=== PATIENT | female | born 1950 | race Caucasian/White ===

== ENCOUNTER → 2019-11-24 | Outpatient (CLI) | payer MEDICARE, OTHER ==
[~2019-11-24] MED LIST: CYCL-97; EST1.25T; LVT.05T; NAPR-248; OXYC-190
--- NOTE | 2019-11-24 11:11 | Diagnostic Imaging Report ---
Indication: Cough PA and lateral chest Heart size and pulmonary vascularity are normal. Lungs are clear. There are no effusions or pneumothoraces. IMPRESSION: Negative chest Dictated by: Dictated on workstation # [id number]
== END ==
LOC: RAD 10:16
PROVIDERS: ATTEND Nurse Practitioner Family
DX: J44.9 Chronic obstructive pulmonary disease, unspecified (principal)
CPT/HCPCS: 71046

== ENCOUNTER → 2020-02-16 | Outpatient (CLI) | payer MEDICARE, OTHER | LOC: LABNPT 09:05 | PROVIDERS: ATTEND Nurse Practitioner Family | DX: J44.9 Chronic obstructive pulmonary disease, unspecified (principal); Z20.828 Contact with and (suspected) exposure to other viral communicable diseases | CPT/HCPCS: 87635 ==

== ENCOUNTER 2020-02-19 20:03 | Outpatient (CLI) | payer MEDICARE, OTHER ==
--- NOTE | 2019-11-28 13:42 | NUR ---
PT SCHEDULED FOR PULMONARY REHAB EVALUATION; LOOKED UP FILE TO SEE IF CURRENT PFT IN RECORDS (FOR EVAL), AND TO GET MAILING ADDRESS TO SEND PAPERWORK.
== END 2020-02-20 04:33 | disposition home or self-care (01) ==
LOC: SLEEP 20:03
PROVIDERS: ATTEND Nurse Practitioner Family
DX: G47.61 Periodic limb movement disorder (principal); G47.36 Sleep related hypoventilation in conditions classified elsewhere; G47.10 Hypersomnia, unspecified; R06.83 Snoring
CPT/HCPCS: 95810

== ENCOUNTER → 2020-08-20 | Outpatient (CLI) | payer MEDICARE, OTHER ==
[~2020-08-20] MED LIST changes: +HOLD METFORMIN - RECEIVED CONTRAST 20 ML VIAL IV SCH; +IOHEXOL 350 MG/ML 100 ML (OMNIPAQUE 350) VIAL IV ONE; +NS 100 ML (IVPB) BAG IV ONE
[2020-08-20 07:49] LABS: BUN/CREATININE RATIO 27; GFR ESTIMATED > 60
--- NOTE | 2020-08-20 10:02 | Diagnostic Imaging Report ---
PROCEDURE: CT chest with contrast only. TECHNIQUE: Multiple contiguous axial images were obtained through the chest after administration of intravenous contrast. Auto Exposure Controls were utilized during the CT exam to meet ALARA standards for radiation dose reduction. INDICATION: History of tobacco use, COPD. Abnormal pulmonary function tests. CORRELATION: None FINDINGS: A few small mediastinal and hilar lymph nodes are present. No pathologically enlarged thoracic lymphadenopathy. Heart size normal with scattered coronary artery calcification. Thoracic aorta is mild calcific indication the arch. Otherwise unremarkable. Advanced emphysematous changes about the lung parenchyma. No consolidating infiltrate. There is asymmetric biapical pleural thickening. There are several scattered areas of faint groundglass opacity within the lung ga. No definitive concerning solid mass lesion. No significant pleural effusion. Small hiatal hernia with some wall thickening about the low esophagus. Low attenuation of the liver with the suggestion of some fatty infiltration. Partially visualized gallbladder appears distended. There is abnormal nodularity indeterminate about the left adrenal gland. One area measuring 17 mm, additional body measuring 21 mm. There is also prominent atherosclerotic plaquing with both calcified and soft tissue plaque along the visualized proximal abdominal aorta. The visualized osseous structures demonstrate no acute findings. Cervical spinal fusion hardware partially visualized. IMPRESSION: 1. Advanced emphysematous changes about the lung parenchyma. Scattered groundglass opacities are present. Findings may be chronic or perhaps with mild inflammatory change. However, given the overall findings, would recommend repeat CT imaging of the chest in approximately 6-12 months for follow-up assessment. 2. Multiple findings in the abdomen including of left adrenal gland masses as well as partial visualization of what appears to be significant atherosclerotic changes about the abdominal aorta. Consideration for CT imaging of the abdomen and pelvis with and without contrast recommended. Dictated by: Dictated on workstation # [id number]
== END ==
LOC: RAD 08:15
PROVIDERS: ATTEND Nurse Practitioner Family
DX: J43.9 Emphysema, unspecified (principal); E27.9 Disorder of adrenal gland, unspecified; G47.36 Sleep related hypoventilation in conditions classified elsewhere; R94.2 Abnormal results of pulmonary function studies; F17.290 Nicotine dependence, other tobacco product, uncomplicated
CPT/HCPCS: 36415; 71260; 82565; 84520

== ENCOUNTER → 2021-02-03 | Outpatient (CLI) | payer MEDICARE, OTHER ==
[~2021-02-03] MED LIST changes: -IOHEXOL 350 MG/ML 100 ML (OMNIPAQUE 350) VIAL IV ONE; -NS 100 ML (IVPB) BAG IV ONE
[2021-02-03 08:31] LABS: CREATININE SERUM 0.69 MG/DL (0.60-1.30); GFR ESTIMATED > 60
[2021-02-03 08:32] LABS: BUN/CREATININE RATIO 17
[2021-02-03] MEDS: NS 100 ML (IVPB) BAG IV ONE (08:56)
[2021-02-03] MEDS: IOHEXOL 350 MG/ML 100 ML (OMNIPAQUE 350) VIAL IV ONE (08:56)
[2021-02-03] MEDS: CATHETER FLUSH 10 ML SYR IV PRN (08:56)
--- NOTE | 2021-02-03 09:05 | Diagnostic Imaging Report ---
EXAMINATION: CT chest with intravenous contrast. TECHNIQUE: Multiple contiguous axial images were obtained through the chest after the uneventful administration of intravenous contrast. All CT scans use one or more of the following dose optimizing techniques: automated exposure control, MA and/or KvP adjustment based on patient size and exam type or iterative reconstruction. HISTORY: Abnormal chest findings, followup. COMPARISON: CT chest 08/20/2020 FINDINGS: Thyroid: The thyroid is normal. Mediastinum: Heart size is normal without significant pericardial effusion. Calcifications of the aorta and coronary vessels. Thoracic aorta is normal in caliber. No suspicious lymphadenopathy. Lungs and airways: There are background emphysematous changes of the lungs. Biapical scarring. No consolidation, pleural effusion, or pneumothorax. Linear atelectasis or scarring within the anterior lungs. Stable left lower lobe pulmonary nodules measuring up to 0.4 cm. Appears to be layering mucus debris within the right mainstem bronchus. There is mild bronchial wall thickening. Upper abdomen: Stable 1.7 cm left adrenal nodule. There is a small hiatal hernia. Musculoskeletal: Degenerative changes of the spine without suspicious osseous lesion or compression fracture. IMPRESSION: 1. Stable mild background emphysematous changes of lungs. No suspicious pulmonary lesion. 2. Stable left lower lobe pulmonary nodules measuring up to 0.4 cm. Consider additional 6-12 month followup to document stability. 3. Stable left adrenal nodule. Dictated by: Dictated on workstation # [id number]
== END ==
LOC: RAD 09:15
PROVIDERS: ATTEND Internal Medicine Critical Care Medicine
DX: J43.9 Emphysema, unspecified (principal); E27.8 Other specified disorders of adrenal gland; R91.8 Other nonspecific abnormal finding of lung field
CPT/HCPCS: 36415; 71260; 82565; 84520

== ENCOUNTER → 2021-03-22 | Outpatient (CLI) | payer MEDICARE, OTHER ==
[~2021-03-22] MED LIST changes: -HOLD METFORMIN - RECEIVED CONTRAST 20 ML VIAL IV SCH; +RT-ALBUTEROL SULF 2.5 MG/3 ML PRE-MIX VIAL INH ONE
== END ==
LOC: RT 08:00
PROVIDERS: ATTEND Nurse Practitioner Family
DX: J44.9 Chronic obstructive pulmonary disease, unspecified (principal)
CPT/HCPCS: 94060; 94640; 94726; 94729

== ENCOUNTER 2022-10-20 04:35 | Observation (INO) | payer MEDICARE, OTHER ==
[~2022-10-20] VITALS: Ht 165 cm; Wt 96.7 kg
[~2022-10-20 04:35] MED LIST changes: -RT-ALBUTEROL SULF 2.5 MG/3 ML PRE-MIX VIAL INH ONE
[2022-10-20] MEDS ORDERED: methylPREDNISolone 125 MG (Solu-MEDROL) VIAL IV STA (04:52)
[2022-10-20] MEDS ORDERED: NITROGLYCERIN 2% OINT 1 GM UNIT DOSE PACKET TOP STA (04:52)
--- NOTE | 2022-10-20 04:52 | ED Cardiac General ---
History of Present Illness General Chief Complaint: Cardiac/General Problems Stated Complaint: BILATERAL ARM NUMBNESS Nursing Triage Note: PT PRESENTS VIA EMS WITH C/O FEELING "OFF" EMS REPORTS PT GOT UP TO USE THE BATHROOM AND HAD DIFFICULTY BREATHING WHEN SHE WENT BACK TO BED. SHE REPORTS BILATERAL ARM NUMBNESS WITH SHORTNESS OF BREATH. SHE STATES SHE GOT UP AND SAT IN A RECLINER AND DECIDED TO TAKE A NITRO WHICH MADE HER FEEL BETTER, BUT LIGHT HEADED. PT TOOK B/P AND REPORTS IT TO BE APPROX 85/50. EMS WAS CALLED, THEY REPORT LOW SPO2 AND DELIVERED A BREATHING TX DURING TRANSPORT. Source: patient (PT IS A POOR HISTORIAN ABOUT PM), EMS (ISAAC LAZCANO DO) History of Present Illness Date Seen by Provider: Oct 20, 2022 Time Seen by Provider: 04:35 Initial Comments PT ARRIVES VIA EMS FROM HOME PT STATES SHE WAS FINE WHEN SHE WENT TO BED TONIGHT SHE WOKE UP AT 0200 TO GO TO THE BATHROOM, AND DIDN'T FEEL WELL, SHE STATES SHE HAD: -SHORTNESS OF BREATH --ESPECIALLY WITH EXERTION, AND WITH LAYING DOWN -PRESSURE IN HER CHEST, IN HER UPPER BACK AND IN HER NECK -TINGLING IN BOTH OF HER ARMS -FELT LIKE SHE WAS GOING TO PASS OUT -NAUSEA, NO VOMITING -SWEATS NO SWELLING IN LEGS/FEET OR PAIN IN CALVES NO ABDOMINAL PAIN SHE TOOK A NTG AT 0330, THEN FELT LIKE SHE WAS GOING TO PASS OUT, BUT IT MADE HER OTHER SYMPTOMS BETTER TOOK HER BP AT HOME AND IT WAS 85/50 ON ARRIVAL, PT STATES SHE IS NOT HAVING ANY PAIN ANYWHERE, AND IS NOT HAVING ANY TINGLING ANYWHERE, AND HER SHORTNESS OF BREATH IS BETTER AFTER THE NEB TREATMENT BY EMS. HAS BEEN SICK FOR THE LAST WEEK WITH COUGH AND CONGESTION--COLD SYMPTOMS DENIES FEVER SHE HAS NOT TAKEN ANYTHING FOR HER SYMPTOMS, AND SHE HAS NOT SOUGHT CARE FOR THOSE SYMPTOMS PT HAS COPD, CONTINUES TO SMOKE 1 1/2 PPD SHE DOES NOT HAVE HOME O2 SHE USED HER INHALERS YESTERDAY PRESCRIBED, BUT NOT SINCE SHE WOKE UP AT 0200. WHEN EMS ARRIVED, PT WAS SITTING AT HER KITCHEN TABLE, SMOKING A CIGARETTE O2 SAT WAS 80% ON ROOM AIR FOR EMS. EMS GAVE DUONEB TREATMENT ENROUTE AND O2 SATS UP TO 98% DURING TREATMEN FIRST BP FOR EMS WAS 104 SYSTOLIC, SECOND BP WAS 179 SYSTOLIC HR HAS BEEN 70'S-80'S FOR EMS PT STATES SHE HAS HISTORY OF "BLOCKAGES" BUT DENIES ANY HISTORY OF HEART SURGERY OR STENTS. SHE ALSO STATES SHE HAS AN ANEURYSM IN HER ABDOMEN, BUT HAS NOT HAD SURGERY OR STENTS TO THAT EITHER. SHE DENIES ANY HISTORY OF HTN OR DIABETES, SHE DOES HAVE HYPERLIPIDEMIA. SHE HAS HAD COVID VACCINE X 2, NO FLU VACCINE PCP: [facility] AT [place] (ISAAC LAZCANO DO) Allergies and Home Medications Allergies Coded Allergies: NKANo Known Allergies (Unverified Allergy, Mild, 07/19/09) Patient Home Medication List Home Medication List Reviewed: Yes (DUSTY MITCHELL MD) Cyclobenzaprine Hcl (Flexeril) 10 Mg Tablet, (Reported) Entered as Reported by: ALIRIO SMITHTREET on 07/19/09557 Estrogens,Conjugated (Premarin) 1.25 Mg Tablet, (Reported) Entered as Reported by: ALIRIO Rebolledo LUCAS on 07/19/0959 Levothyroxine Sodium (Levothroid) 50 Mcg Tab, (Reported) Entered as Reported by: ALIRIO Rebolledo LUCAS on 07/19/09557 Naproxen (Ec-Naprosyn) 500 Mg Tablet., (Reported) Entered as Reported by: ALIRIO Rebolledo LUCAS on 07/19/09557 Oxycodone Hcl/Acetaminophen (Endocet 7.5-325 Mg Tablet) 1 Each Tablet, (Reported) Entered as Reported by: ALIRIO SMITHTREET on 07/19/0959 Review of Systems Review of Systems Constitutional: see HPI, diaphoresis, dizziness, fever EENTM: See HPI, Nose Congestion Respiratory: See HPI, Cough, Orthopnea, Shortness of Air, SOA With Exertion, SOA at Rest, Wheezing Cardiovascular: See HPI, Chest Pain; Denies Edema, Denies Irregular Heart Rate; Lightheadedness; Denies Palpitations, Denies Syncope Gastrointestinal: See HPI; Denies Abdominal Pain; Nausea; Denies Vomiting Genitourinary: No Symptoms Reported Musculoskeletal: see HPI, back pain Skin: no symptoms reported Psychiatric/Neurological: See HPI, Paresthesia Endocrine: No Symptoms Reported Hematologic/Lymphatic: No Symptoms Reported (ISAAC LAZCANO DO) Past Nwflxim-Dthnse-Xgzsqw Hx Patient Social History Tobacco Use?: Yes Tobacco type used: Cigarettes Smoking Status: Current Everyday Smoker Use of E-Cig and/or Vaping dev: No Substance use?: No Alcohol Use?: No (ISAAC LAZCANO DO) Past Medical History Surgeries: No Respiratory: Yes COPD Cardiac: Yes Aneurysm, Coronary Artery Disease, High Cholesterol 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 oz. kg; 34.00 BMI Method: General Appearance: No Apparent Distress, WD/WN, Other (REEKS OF CIGARETTES; PT IS DYSPNEIC ON TRANSFER FROM EMS COT TO ER COT, ON ARRIVAL, THIS DOES IMPROVE AFTER SHE HAS RESTED ) HEENT: PERRL/EOMI Neck: Full Range of Motion, Normal Inspection, Non Tender, Supple; No Carotid Bruit Respiratory: Chest Non Tender, No Accessory Muscle Use, No Respiratory Distress, Wheezing (DIFFUSE INSPIRATORY/EXPIRATORY WHEEZING BILATERALLY) Cardiovascular: Regular Rate, Rhythm, No Edema, No JVD, No Murmur, Normal Peripheral Pulses Gastrointestinal: Normal Bowel Sounds, No Organomegaly, No Pulsatile Mass, Non Tender, Soft Extremity: Normal Capillary Refill, Normal Inspection, Normal Range of Motion, Non Tender, No Calf Tenderness, No Pedal Edema Neurologic/Psychiatric: Alert, Oriented x3, No Motor/Sensory Deficits, Normal 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, 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 as Tested Skin: Normal Color, Warm/Dry (ISAAC LAZCANO DO) Focused Exam Lactate Level 10/20/22 05:08: Lactic Acid Level 1.13 (DUSTY MITCHELL MD) Lactic Acid Level Laboratory Tests Test 10/20/22 05:08 Lactic Acid Level 1.13 MMOL/L (0.50-2.00) (DUSTY MITCHELL MD) Progress/Results/Core Measures Results/Orders Lab Results Laboratory Tests Test 10/20/22 04:08 10/20/22 04:55 10/20/22 05:08 10/20/22 05:35 Range/Units White Blood Count 6.5 4.3-11.0 10^3/uL Red Blood Count 5.23 H 3.80-5.11 10^6/uL Hemoglobin 16.2 H 11.5-16.0 g/dL Hematocrit 48 35-52 % Mean Corpuscular Volume 92 80-99 fL Mean Corpuscular Hemoglobin 31 25-34 pg Mean Corpuscular Hemoglobin Concent 34 32-36 g/dL Red Cell Distribution Width 14.0 10.0-14.5 % Platelet Count 237 130-400 10^3/uL Mean Platelet Volume 9.0 9.0-12.2 fL Immature Granulocyte % (Auto) 0 % Neutrophils (%) (Auto) 42 42-75 % Lymphocytes (%) (Auto) 47 H 12-44 % Monocytes (%) (Auto) 10 0-12 % Eosinophils (%) (Auto) 1 0-10 % Basophils (%) (Auto) 0 0-10 % Neutrophils # (Auto) 2.7 1.8-7.8 10^3/uL Lymphocytes # (Auto) 3.0 1.0-4.0 10^3/uL Monocytes # (Auto) 0.7 0.0-1.0 10^3/uL Eosinophils # (Auto) 0.1 0.0-0.3 10^3/uL Basophils # (Auto) 0.0 0.0-0.1 10^3/uL Immature Granulocyte # (Auto) 0.0 0.0-0.1 10^3/uL Erythrocyte Sedimentation Rate 5 0-30 MM/HR Prothrombin Time 12.1 L 12.2-14.7 SEC INR Comment 0.9 0.8-1.4 Activated Partial Thromboplast Time 27 24-35 SEC D-Dimer 0.59 H 0.00-0.49 UG/ML Sodium Level 135 135-145 MMOL/L Potassium Level 3.6 3.6-5.0 MMOL/L Chloride Level 94 L 98-107 MMOL/L Carbon Dioxide Level 30 21-32 MMOL/L Anion Gap 11 5-14 MMOL/L Blood Urea Nitrogen 14 7-18 MG/DL Creatinine 0.73 0.60-1.30 MG/DL Estimat Glomerular Filtration Rate 87 BUN/Creatinine Ratio 19 Glucose Level 131 H 70-105 MG/DL Calcium Level 9.6 8.5-10.1 MG/DL Corrected Calcium 9.6 8.5-10.1 MG/DL Magnesium Level 2.1 1.6-2.4 MG/DL Total Bilirubin 0.4 0.1-1.0 MG/DL Aspartate Amino Transf (AST/SGOT) 25 5-34 U/L Alanine Aminotransferase (ALT/SGPT) 34 0-55 U/L Alkaline Phosphatase 92 40-136 U/L Total Creatine Kinase 56 29-168 U/L Creatine Kinase MB 1.6 <6.6 NG/ML Myoglobin 34.4 10.0-92.0 NG/ML Troponin I < 0.028 <0.028 NG/ML C-Reactive Protein High Sensitivity 0.87 H 0.00-0.50 MG/DL B-Type Natriuretic Peptide 27.6 <100.0 PG/ML Total Protein 7.1 6.4-8.2 GM/DL Albumin 4.0 3.2-4.5 GM/DL Amylase Level 20 L 25-125 U/L Lipase 4 L 8-78 U/L TSH [place] Testing 4.31 0.35-4.94 UIU/ML Influenza Type A (RT-PCR) Not Detected Not Detecte Influenza Type B (RT-PCR) Not Detected Not Detecte SARS-CoV-2 RNA (RT-PCR) Not Detected Not Detecte Lactic Acid Level 1.13 0.50-2.00 MMOL/L Blood Gas Puncture Site LR Blood Gas Patient Temperature 35.6 Arterial Blood pH 7.34 *L 7.37-7.43 Arterial Blood Partial Pressure CO2 63 H 35-45 MMHG Arterial Blood Partial Pressure O2 69 L 79-93 MMHG Arterial Blood HCO3 34 H 23-27 MMOL/L Arterial Blood Total CO2 35.8 H 21.0-31.0 MMOL/L Arterial Blood Oxygen Saturation 97 94-100 % Arterial Blood Base Excess 7.8 H -2.5-2.5 MMOL/L Diaz Test YES-POS Blood Gas Ventilator Setting NO Blood Gas Inspired Oxygen 2 L Test 10/20/22 06:26 Range/Units Urine Color YELLOW Urine Clarity CLOUDY Urine pH 7.0 5-9 Urine Specific [place] 1.010 L 1.016-1.022 Urine Protein NEGATIVE NEGATIVE Urine Glucose (UA) NEGATIVE NEGATIVE Urine Ketones NEGATIVE NEGATIVE Urine Nitrite NEGATIVE NEGATIVE Urine Bilirubin NEGATIVE NEGATIVE Urine Urobilinogen 0.2 < = 1.0 MG/DL Urine Leukocyte Esterase NEGATIVE NEGATIVE Urine RBC (Auto) NEGATIVE NEGATIVE Urine RBC NONE /HPF Urine WBC NONE /HPF Urine Squamous Epithelial Cells 2-5 /HPF Urine Crystals PRESENT H /LPF Urine Amorphous Sediment MOD DEBBY URATES H /LPF Urine Bacteria NEGATIVE /HPF Urine Casts NONE /LPF Urine Mucus NEGATIVE /LPF Urine Culture Indicated NO (DUSTY MITCHELL MD) My Orders Orders - DUSTY MITCHELL MD Albuterol/Ipra Inhalation Soln (Duoneb I (10/20/22 07:45) Svn Small Volume Nebulizer (10/20/22 07:36) (DUSTY MITCHELL MD) Medications Given in ED Current Medications Medications Dose Ordered Sig/Viviana Route Start Time Stop Time Status Last Admin Dose Admin Albuterol/ Ipratropium 3 ml ONCE ONCE INH 10/20/22 05:00 10/20/22 05:01 DC 10/20/22 05:36 3 ML Albuterol/ Ipratropium 3 ml ONCE ONCE INH 10/20/22 07:45 10/20/22 07:46 DC 10/20/22 07:49 3 ML Aspirin 324 mg ONCE ONCE PO 10/20/22 05:00 10/20/22 05:01 DC 10/20/22 05:00 324 MG Dexamethasone Sodium Phosphate 20 mg ONCE ONCE IH 10/20/22 05:00 10/20/22 05:01 DC 10/20/22 05:37 20 MG Iohexol 100 ml ONCE ONCE IV 10/20/22 06:45 10/20/22 06:46 DC 10/20/22 06:47 79 ML Sodium Chloride 100 ml ONCE ONCE IV 10/20/22 06:45 10/20/22 06:46 DC 10/20/22 06:47 80 ML (DUSTY MITCHELL MD) Vital Signs/I&O 10/20/22 10/20/2210/20/23 04:36 04:52 05:47 Temp 35.8 Pulse 80 Resp 20 B/P (MAP) 177/77 (110) Pulse Ox 95 96 O2 Delivery Nasal Cannula Nasal Cannula Nasal Cannula O2 Flow Rate 2.00 4.00 2.00 (DUSTY MITCHELL MD) Blood Pressure Mean: 110 Progress Progress Note : Progress Note PPE WORN COVID AND FLU TESTING DONE GIVEN: -ASPIRIN -NITROPASTE HELD, BP IS DOWN TO 150'S/60'S SHORTLY AFTER ARRIVAL, AND PT IS NOT COMPLAINING OF ANY CHEST PAIN OR BACK OR NECK PAIN OR ARM TINGLING AT THIS TIME. -SOLU-MEDROL -NEB TREATMENT 0550--PT STATES SHE IS FEELING MUCH BETTER THAN SHE DID AT HOME. VITALS ARE STABLE. WILL OBTAIN CT SCAN OF CHEST AND ABDOMEN, BASED ON PT'S SYMPTOMS AND HISTORY. REVIEWED PRIOR RECORDS, PT HAS NOT HAD ANY VISITS HERE, EXCEPT FOR A SINGLE ER VISIT IN 2008 FOR AN UNRELATED COMPLAINT 0600--CARE TURNED OVER TO DR. MITCHELL, CT IS PENDING AT THIS TIME. (ISAAC LAZCANO DO) Progress Note : Time: 08:03 Progress Note I assumed care of this patient from Dr. LAZCANO at shift change. She is stable at this time. She denies any further chest or neck pressure. She is stable on nasal cannula at 2 L. On auscultation she is still very wheezy. Another DuoNeb treatment has been ordered. Patient comments to nursing staff that she has a "allergy" to albuterol and that on a prior episode it caused her to "close up." However, she did not have any adverse reaction to DuoNeb earlier this morning. We are trying another treatment. I discussed CODE STATUS with the patient and she would like to remain full code. She is agreeable to admission for observation. I am concerned about her persistent wheezing and severity of hypoxia. I want to be sure she is improving before being discharged home. Case was discussed with Dr. Malohtra, hospitalist, who agrees to admission. Patient's primary care provider is Sheree Dubois with the [facility] and her instrument technologist is Dr. Benitez in [place]. (DUSTY MITCHELL MD) Initial ECG Impression Date: Oct 20, 2022 Initial ECG Impression Time: 04:44 Initial ECG Rate: 78 Initial ECG Rhythm: Normal Sinus Initial ECG Comparisson: No Previous ECG Available Comment INTERPRETED BY ME (ISAAC LAZCANO DO) Diagnostic Imaging Comments CXR--PER RADIOLOGIST REPORT AT 0546 Heart size and pulmonary vascularity are normal. Lungs are clear. There are no effusions or pneumothoraces. IMPRESSION: No acute abnormalities in the chest Reviewed: Reviewed by Me (ISAAC LAZCANO DO) Diagonstic Imaging: CT Plain Films/CT/US/NM/MRI: chest, abdomen, pelvis Comments CT angiogram viewed by me and report reviewed. See report below: NAME: CARA HAMEED [employer] REC#: [id number] PT STATUS: REG ER : 1950 PHYSICIAN: ISAAC LAZCANO DO ADMIT DATE: 10/20/22/ER Draft Date of Exam:10/20/22 CT BENNETT CHEST/NOANG ABD-PELV W INDICATION: chest pain/abdominal pain CTA chest, abdomen and pelvis Thin axial sections through the chest, abdomen and pelvis are obtained following intravenous contrast bolus. Multiplanar MIP images were reconstructed and reviewed. All CT scans use one or more of the following dose optimizing techniques: automated exposure control, MA and/or KvP adjustment based on patient size and exam type or iterative reconstruction. CTA of the chest with a CT abdomen pelvis 10/20/22 Comparison made to a chest from 02/03/2021 FINDINGS: CHEST: There is diffuse atherosclerotic disease throughout the thoracic aorta. There is no aneurysmal dilatation. No dissection. There are no central pulmonary emboli. The peripheral vessels are poorly opacified limiting evaluation especially in the lower lobes where pulmonary embolus cannot be excluded. Scattered areas of hypodensity likely incomplete opacification but if there is concern for pulmonary embolus repeat imaging recommended. There is a slightly prominent lymph node within the right hilum. No mediastinal adenopathy. There are no pericardial or pleural effusions. There is motion artifact within the lungs limiting evaluation. Emphysematous changes noted with scarring in the apices. No suspicious masses appreciated. Visualized upper abdomen demonstrates marked diffuse hepatic steatosis. There is a mass like lesion in the left adrenal gland. Dedicated adrenal protocol CT on nonemergent basis recommended. Hyperplasia of the right adrenal gland is noted. There is no acute osseous abnormality. CT abdomen pelvis: There is marked dilatation of the gallbladder without surrounding inflammatory change. There is diffuse hepatic steatosis. Spleen unremarkable. Adrenal glands described above. Pancreas atrophied. Kidneys unremarkable for acute abnormality. There is diffuse atherosclerotic disease throughout the visualized abdominal aorta with an infrarenal aneurysm noted measuring 4.2 cm in AP dimension. No obvious dissection appreciated however this is not a CTA of the abdomen and pelvis. There is no ascites. No free air. No inflammatory changes seen about the loops of bowel. No acute osseous abnormality. IMPRESSION: 1. No evidence for a thoracic aortic aneurysm or dissection. 2. No central pulmonary emboli. Peripheral vessels not well evaluated as above and if there is continued concern for a pulmonary embolus repeat imaging recommended. 3. Emphysematous changes. 4. Diffuse dilatation of the gallbladder without surrounding inflammation. 5. Infrarenal abdominal aortic aneurysm. 6. Hepatic steatosis. 7. Left adrenal lesion see above for recommendations. Dictated on workstation # [id number] Dict: 10/20/22 0641 Trans: 10/20/22 0710 [facility] [id number] Interpreted by: CODY HUGO MD (DUSTY MITCHELL MD) Departure Communication (Admissions) Time/Spoke to Admitting Phy: 08:00 Dr Malhotra (DUSTY MITCHELL MD) Impression Primary Impression: COPD exacerbation Additional Impressions: Hypoxia Chest pain Qualified Codes: R07.9 - Chest pain, unspecified Lesion of adrenal gland Near syncope Hypercarbia Disposition: ADMITTED INPATIENT Condition: Improved Admissions Decision to Admit Reason: Admit from ER (General) Decision to Admit/Date: Oct 20, 2022 Time/Decision to Admit Time: 08:00 (DUSTY MITCHELL MD) Departure-Patient Inst. Referrals: [facility] (PCP/Family) Primary Care Physician ISAAC LAZCANO DO Oct 20, 2022 04:52 DUSTY MITCHELL MD Oct 20, 2022 07:21
[2022-10-20] MEDS ORDERED: RT-ALBUTEROL/IPRATROPIUM 3 ML (DUONEB) VIAL INH ONE ×2 (05:00→07:45)
[2022-10-20] MEDS ORDERED: ASPIRIN 81 MG CHEW (CHILDREN'S ASA) PO ONE (05:00)
[2022-10-20 05:02] LABS: BASOPHILS % (AUTO) 0 % (0-10); EOSINOPHILS # (AUTO) 0.1 10^3/uL (0.0-0.3); EOSINOPHILS % (AUTO) 1 % (0-10); HEMATOCRIT 48 % (35-52); HEMOGLOBIN 16.2 g/dL (11.5-16.0); LYMPHOCYTES % (AUTO) 47 % (12-44); MEAN CORPUSCULAR HEMOGLOBIN 31 pg (25-34); MEAN CORPUSCULAR HGB CONC 34 g/dL (32-36); MEAN CORPUSCULAR VOLUME 92 fL (80-99); MONOCYTES # (AUTO) 0.7 10^3/uL (0.0-1.0); MONOCYTES % (AUTO) 10 % (0-12); NEUTROPHILS # (AUTO) 2.7 10^3/uL (1.8-7.8); NEUTROPHILS % (AUTO) 42 % (42-75); PLATELET COUNT 237 10^3/uL (130-400); WHITE BLOOD COUNT 6.5 10^3/uL (4.3-11.0)
[2022-10-20 05:18] LABS: FIBRIN DEGRADATION PRODUCTS 0.59 UG/ML (0.00-0.49); INR 0.9 (0.8-1.4); PROTHROMBIN TIME PATIENT 12.1 SEC (12.2-14.7)
[2022-10-20 05:30] LABS: ALANINE AMINOTRANSFERASE 34 U/L (0-55); ALKALINE PHOSPHATASE 92 U/L (40-136); AMYLASE 20 U/L (25-125); BILIRUBIN,TOTAL 0.4 MG/DL (0.1-1.0); BUN/CREATININE RATIO 19; CALCIUM 9.6 MG/DL (8.5-10.1); CARBON DIOXIDE 30 MMOL/L (21-32); CHLORIDE 94 MMOL/L (98-107); CREATINE KINASE 56 U/L (29-168); CREATININE SERUM 0.73 MG/DL (0.60-1.30); GFR ESTIMATED 87; GLUCOSE 131 MG/DL (70-105); LIPASE 4 U/L (8-78); MAGNESIUM 2.1 MG/DL (1.6-2.4); POTASSIUM 3.6 MMOL/L (3.6-5.0); SODIUM 135 MMOL/L (135-145); TOTAL PROTEIN 7.1 GM/DL (6.4-8.2)
[2022-10-20 05:39] LABS: ERYTHROCYTE SEDIMENTATION RATE 5 MM/HR (0-30)
--- NOTE | 2022-10-20 05:41 | Diagnostic Imaging Report ---
Indication: Chest pain, shortness of breath Portable chest 5:03 AM Heart size and pulmonary vascularity are normal. Lungs are clear. There are no effusions or pneumothoraces. IMPRESSION: No acute abnormalities in the chest Dictated by: Dictated on workstation # [id number]
[2022-10-20 05:42] LABS: CREATINE KINASE MB 1.6 NG/ML (<6.6); TSH (THYROID ANALYZER) 4.31 UIU/ML (0.35-4.94)
[2022-10-20 05:53] LABS: ABG BASE EXCESS 7.8 MMOL/L (-2.5-2.5); ABG OXYGEN SATURATION 97 % (94-100); ABG PCO2 63 MMHG (35-45); ABG PO2 69 MMHG (79-93); ABG TCO2 35.8 MMOL/L (21.0-31.0)
[2022-10-20 05:54] LABS: ABG PH 7.34 (7.37-7.43); ALLENS TEST YES-POS; INSPIRED O2 2 L; PATIENT TEMP 35.6; VENTILATOR NO
[2022-10-20 06:39] LABS: BILIRUBIN,URINE NEGATIVE (NEGATIVE); CLARITY,URINE CLOUDY; COLOR,URINE YELLOW; GLUCOSE, URINE (UA) NEGATIVE (NEGATIVE); KETONES,URINE NEGATIVE (NEGATIVE); LEUKOCYTE ESTERASE ,URINE NEGATIVE (NEGATIVE); NITRITE,URINE NEGATIVE (NEGATIVE); PROTEIN,URINE NEGATIVE (NEGATIVE)
[2022-10-20] MEDS ORDERED: HOLD METFORMIN - RECEIVED CONTRAST 20 ML VIAL IV SCH (06:45)
[2022-10-20] MEDS ORDERED: NS 100 ML (IVPB) BAG IV ONE (06:45)
[2022-10-20] MEDS ORDERED: IOHEXOL 350 MG/ML 100 ML (OMNIPAQUE 350) VIAL IV ONE (06:45)
[2022-10-20 07:07] LABS: AMORPHOUS SEDIMENT,UR MOD AMOR URATES /LPF; BACTERIA,URINE NEGATIVE /HPF
--- NOTE | 2022-10-20 07:11 | Diagnostic Imaging Report ---
INDICATION: chest pain/abdominal pain CTA chest, abdomen and pelvis Thin axial sections through the chest, abdomen and pelvis are obtained following intravenous contrast bolus. Multiplanar MIP images were reconstructed and reviewed. All CT scans use one or more of the following dose optimizing techniques: automated exposure control, MA and/or KvP adjustment based on patient size and exam type or iterative reconstruction. CTA of the chest with a CT abdomen pelvis 10/20/22 Comparison made to a chest from 02/03/2021 FINDINGS: CHEST: There is diffuse atherosclerotic disease throughout the thoracic aorta. There is no aneurysmal dilatation. No dissection. There are no central pulmonary emboli. The peripheral vessels are poorly opacified limiting evaluation especially in the lower lobes where pulmonary embolus cannot be excluded. Scattered areas of hypodensity likely incomplete opacification but if there is concern for pulmonary embolus repeat imaging recommended. There is a slightly prominent lymph node within the right hilum. No mediastinal adenopathy. There are no pericardial or pleural effusions. There is motion artifact within the lungs limiting evaluation. Emphysematous changes noted with scarring in the apices. No suspicious masses appreciated. Visualized upper abdomen demonstrates marked diffuse hepatic steatosis. There is a mass like lesion in the left adrenal gland. Dedicated adrenal protocol CT on nonemergent basis recommended. Hyperplasia of the right adrenal gland is noted. There is no acute osseous abnormality. CT abdomen pelvis: There is marked dilatation of the gallbladder without surrounding inflammatory change. There is diffuse hepatic steatosis. Spleen unremarkable. Adrenal glands described above. Pancreas atrophied. Kidneys unremarkable for acute abnormality. There is diffuse atherosclerotic disease throughout the visualized abdominal aorta with an infrarenal aneurysm noted measuring 4.2 cm in AP dimension. No obvious dissection appreciated however this is not a CTA of the abdomen and pelvis. There is no ascites. No free air. No inflammatory changes seen about the loops of bowel. No acute osseous abnormality. IMPRESSION: 1. No evidence for a thoracic aortic aneurysm or dissection. 2. No central pulmonary emboli. Peripheral vessels not well evaluated as above and if there is continued concern for a pulmonary embolus repeat imaging recommended. 3. Emphysematous changes. 4. Diffuse dilatation of the gallbladder without surrounding inflammation. 5. Infrarenal abdominal aortic aneurysm. 6. Hepatic steatosis. 7. Left adrenal lesion see above for recommendations. Dictated by: Dictated on workstation # [id number]
[2022-10-20] MEDS ORDERED: polyethylene glycoL POWDER 17 GM (MIRALAX) PACK PO PRN (10:15)
[2022-10-20] MEDS ORDERED: CALCIUM CARBONATE 500 MG (TUMS) TAB.CHEW PO PRN (10:15)
[2022-10-20] MEDS ORDERED: NS IV 500 ML 500 ML IV PRN (10:15)
[2022-10-20] MEDS ORDERED: ACETAMINOPHEN 325 MG TABLET PO PRN (10:15)
[2022-10-20] MEDS ORDERED: MILK OF MAGNESIA 400 MG/5 ML 30 ML UDC PO PRN (10:15)
[2022-10-20] MEDS ORDERED: ONDANSETRON 4 MG/2 ML (SDV) Z0FRAN IV PRN (10:15)
[2022-10-20] MEDS ORDERED: ANTACID SUSP 30 ML UDC (MYLANTA) PO PRN (10:15)
[2022-10-20] MEDS ORDERED: LACTULOSE SYRUP 10GM/15ML (ENULOSE) 30ML UDC PO PRN (10:15)
[2022-10-20] MEDS ORDERED: BISACODYL 10 MG SUPP (DULCOLAX) PR PRN (10:15)
[2022-10-20] MEDS ORDERED: ONDANSETRON 4 MG (ZOFRAN) ORAL DISSOLVE TAB PO PRN (10:15)
[2022-10-20] MEDS ORDERED: MELATONIN 3 MG TABLET PO PRN (10:15)
[2022-10-20 10:23] VITALS: BP_SYST 146; BP_SYST 177; BP_DIAS 77; BP_DIAS 80
[2022-10-20] MEDS ORDERED: RT-ALBUTEROL SULF 2.5 MG/3 ML PRE-MIX VIAL INH PRN (10:30)
[2022-10-20] MEDS ORDERED: RT-IPRATROPIUM (ATROVENT) 0.5MG/2.5ML AMP IH ONE (10:44)
[2022-10-20] MEDS ORDERED: HYDR12.56 PO (11:10)
[2022-10-20] MEDS ORDERED: DILT120C47 PO (11:10)
[2022-10-20] MEDS ORDERED: ALIR150P6 INJ (11:10)
[2022-10-20] MEDS ORDERED: LEVO50TA6 PO (11:10)
[2022-10-20] MEDS ORDERED: TIOT4MIS2 INH (11:10)
[2022-10-20] MEDS ORDERED: IPR14IN INH (11:12)
[2022-10-20] MEDS: NICOTINE 21 MG (NICODERM) PATCH TD SCH (11:23)
[2022-10-20] MEDS: ENOXAPARIN 40 MG/0.4 ML (LOVENOX) SYR SC SCH (11:23)
[2022-10-20 11:47] VITALS: BP 164/75
[2022-10-20] MEDS: RT-IPRATROPIUM (ATROVENT) 0.5MG/2.5ML AMP IH SCH ×3 (14:55→22:14)
[2022-10-20] MEDS: RT-ALBUTEROL SULF 2.5 MG/3 ML PRE-MIX VIAL INH SCH ×2 (14:55→19:37)
[2022-10-20 15:49] VITALS: BP 157/80
[2022-10-20] MEDS: guaiFENesin/CODEINE (ROBITUSSIN AC) 10ML UDC PO PRN ×2 (16:01→21:46)
--- NOTE | 2022-10-20 18:53 | History & Physical-Hospitalist ---
History of Present Illness HPI/Chief Complaint Saima Small is a 72 year old female with PMH COPD on nocturnal oxygen, tobacco abuse, HTN, hypothyroidism, who presented with shortness of breath. She has also had a cough. She hasn't been producing much sputum. She has had chest tightness. She does not describe it as pain. She denies fevers and chills. She denies pal pitations. She felt lightheaded and dizzy. She took a nitroglycerin because she thought this would help. She was feeling a bit nauseous. She denies vomiting. She denies abdominal pain. Source: patient Exam Limitations: no limitations Date Seen 10/20/22 Time Seen by a Provider: 12:00 Attending Physician Faith Woodruff PCP Admitting Physician: Serina Koch MD Attending Physician: Serina Koch MD Referring Physician Date of Admission Oct 20, 2022 at 08:03 Home Medications & Allergies Home Medications Reviewed patient Home Medication Reconciliation performed by pharmacy medication reconciliations nursery technician and/or nursing. Patients Allergies have been reviewed. Allergies Allergies Coded Allergies [id number]-BnG Reductase Inhibitor (Verified Allergy, Unknown, 10/20/22) Past [id number]-[id number] Hx Patient Social History Tobacco Use?: Yes Tobacco type used: Cigarettes Smoking Status: Current Everyday Smoker Smokeless Tobacco Frequency: Current Everyday User Use of E-Cig and/or Vaping dev: No Substance use?: No Alcohol Use?: No Pt feels they are or have been: No Immunizations Up To Date Date of Influenza Vaccine: Aug 01, 2022 Tetanus Booster (TDap): Unknown Hepatitis A: Yes Hepatitis B: Yes Current Status Advance Directives: No Communicates: Verbally Primary Language: [place] Preferred Spoken Language: [place] Is interpretation needed?: No Sensory deficits: Vision impairment Implanted or Applied Medical D: Orthopedic hardware Past Medical History COPD Hypertension, Peripheral Vascular (Carotid stenosis) 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 oz. kg; 34.67 BMI Method: General Appearance: No Apparent Distress, Chronically ill, Obese HEENT: PERRL/EOMI, Pharynx Normal Neck: Normal Inspection, Supple Respiratory: No Respiratory Distress, Wheezing Cardiovascular: Regular Rate, Rhythm, No Edema, No Murmur Gastrointestinal: Normal Bowel Sounds, Non Tender, Soft Extremity: Normal Inspection, Non Tender, No Pedal Edema Neurologic/Psychiatric: Alert, Normal Mood/Affect Skin: Normal Color, Warm/Dry Results Results/Procedures Labs Laboratory Tests 10/20/22 04:08 Patient resulted labs reviewed. Imaging: Reviewed Imaging Report Assessment/Plan Admission Diagnosis Acute COPD exacerbation Admission Status: Inpatient Order (span 2 midnights) Reason for Inpatient Admission: Respiratory failure Assessment and Plan Acute COPD exacerbation Acute on chronic respiratory failure with hypoxia and hypercapnia CT chest without infiltrate, no PE, adrenal incidentaloma Steroids MAT protocol Supplemental oxygen as needed Chest tightness Troponin negative No evidence of ACS HTN Hypothyroidism Continue home meds Tobacco abuse Nicotine patch Recommend cessation Obesity Clinically significant, no acute management needs Adrenal incidentaloma Follow up outpatient adrenal CT recommended DVT prophylaxis: Lovenox Diagnosis/Problems Diagnosis/Problems (1) Acute exacerbation of chronic obstructive pulmonary disease (COPD) Status: Acute (2) Acute on chronic respiratory failure with hypoxia and hypercapnia Status: Acute (3) Adrenal incidentaloma Status: Acute (4) HTN (hypertension) Status: Chronic (5) Hypothyroidism Status: Chronic (6) Obesity Status: Chronic (7) Tobacco abuse Status: Chronic SERINA KOCH MD Oct 20, 2022 18:53
[2022-10-20 19:17] VITALS: BP 181/86
[2022-10-20] MEDS: DOCUSATE SODIUM 100 MG (COLACE) CAP PO SCH (19:58)
[2022-10-20] MEDS: SENNOSIDES 8.6 MG (SENOKOT) TAB PO SCH (19:59)
[2022-10-20] MEDS: BENZONATATE 100 MG (TESSALON) CAPSULE PO SCH (20:00)
[2022-10-20 20:50] VITALS: BP 157/66
[2022-10-20] MEDS: RT-LEVALBUTEROL (XOPENEX) 1.25 MG/3 ML NEB NON-FORMULARY INH SCH (22:14)
[2022-10-20 23:15] VITALS: BP 156/75
[2022-10-21] MEDS: RT-LEVALBUTEROL (XOPENEX) 1.25 MG/3 ML NEB NON-FORMULARY INH SCH ×4 (02:20→09:02)
[2022-10-21] MEDS: RT-IPRATROPIUM (ATROVENT) 0.5MG/2.5ML AMP IH SCH ×3 (02:21→09:02)
[2022-10-21 03:07] VITALS: BP 170/69
[2022-10-21] MEDS: guaiFENesin/CODEINE (ROBITUSSIN AC) 10ML UDC PO PRN ×2 (03:13→11:57)
[2022-10-21 05:57] LABS: POTASSIUM 3.8 MMOL/L (3.6-5.0)
[2022-10-21 05:59] LABS: CALCIUM 9.4 MG/DL (8.5-10.1)
[2022-10-21] MEDS ORDERED: KCL 20 MEQ TAB (K-DUR) PO SCH (06:00)
[2022-10-21] MEDS ORDERED: POTASSIUM CL 10MEQ/50ML IVPB 50 ML IV SCH (06:00)
[2022-10-21] MEDS ORDERED: MAGNESIUM 1 GM/100 ML IVPB 100 ML IV SCH (06:00)
[2022-10-21 06:03] LABS: CREATININE SERUM 0.67 MG/DL (0.60-1.30)
[2022-10-21 06:05] LABS: MAGNESIUM 2.1 MG/DL (1.6-2.4)
[2022-10-21] MEDS ORDERED: LEVOTHYROXINE 50 MCG (LEVOTHROID) TAB PO SCH (06:30)
[2022-10-21] MEDS ORDERED: predniSONE 20 MG TAB PO SCH (07:00)
[2022-10-21 07:33] VITALS: BP 172/72
[2022-10-21] MEDS: NICOTINE 21 MG (NICODERM) PATCH TD SCH (07:53)
[2022-10-21] MEDS: BENZONATATE 100 MG (TESSALON) CAPSULE PO SCH (07:53)
[2022-10-21] MEDS ORDERED: UMECLIDINIUM BROMIDE (INCRUSE ELLIPTA) 7'S IH SCH (08:00)
[2022-10-21] MEDS ORDERED: PATCH REMOVAL TP SCH (08:59)
[2022-10-21] MEDS ORDERED: HydroCHLOROthiazide CAP/TABLET 12.5 MG TAB PO SCH (09:00)
[2022-10-21] MEDS ORDERED: NON-FORMULARY MEDICATION 1 EA EA (Hydrochlorothiazide 12.5 MG) PO SCH (09:00)
[2022-10-21] MEDS ORDERED: NON-FORMULARY MEDICATION 1 EA EA (Diltiazem HCl (Dilt-Xr) 120 MG) PO SCH (09:00)
[2022-10-21] MEDS ORDERED: TIOTROPIUM BROMIDE INH SCH (09:00)
[2022-10-21] MEDS ORDERED: dilTIAZem120 MG (CARDIZEM CD) CAP PO SCH (09:00)
[2022-10-21] MEDS ORDERED: [UNRECOGNIZED DRUG - OTHER] INH SCH (09:00)
[2022-10-21] MEDS: DOCUSATE SODIUM 100 MG (COLACE) CAP PO SCH (09:11)
[2022-10-21] MEDS: SENNOSIDES 8.6 MG (SENOKOT) TAB PO SCH (09:12)
[2022-10-21 09:23] VITALS: BP 157/71
[2022-10-21] MEDS ORDERED: HydroCHLOROthiazide CAP/TABLET 12.5 MG TAB PO ONE (09:30)
[2022-10-21] MEDS: ENOXAPARIN 40 MG/0.4 ML (LOVENOX) SYR SC SCH (09:50)
[2022-10-21] MEDS ORDERED: PRED10TA22 PO (10:44)
--- NOTE | 2022-10-21 18:46 | Discharge Summary ---
Discharge Summary Hospital Course Problems/Dx: (1) Acute exacerbation of chronic obstructive pulmonary disease (COPD) Status: Acute (2) Acute on chronic respiratory failure with hypoxia and hypercapnia Status: Acute (3) Adrenal incidentaloma Status: Acute (4) HTN (hypertension) Status: Chronic (5) Hypothyroidism Status: Chronic (6) Obesity Status: Chronic (7) Tobacco abuse Status: Chronic Hospital Course Date of Admission: Oct 20, 2022 at 08:03 Admission Diagnosis : Acute COPD exacerbation Family Physician/Provider: Jina Feng Date of Discharge: 10/21/22 Discharge Diagnosis: Acute COPD exaceration, acute on chronic respiratory failure with hypoxia and hypercapnia Hospital Course: Saima Small is a 72 year old female who was admitted with acute COPD exacerbation. She was treated with steroids and breathing treatments and improved. She was also requiring supplemental oxygen during the day, which she typically only requires at night. She was needing 3 L with exertion at the time of discharge. She was given a course of steroids to complete as an outpatient. She was encouraged to stop smoking and informed of the dangers of smoking while using oxygen. She had elevated blood pressures but refused to start or increase any medications. She says her blood pressure will improve when she gets home. She should follow up with her PCP Renato Woodruff in about a week. She was found to have an adrenal indicentaloma and should consider outpatient adrenal CT for further evaluation. Labs and Pending Lab Test: Laboratory Tests 10/21/22 05:37: Sodium Level 132L, Potassium Level 3.8, Chloride Level 95L, Carbon Dioxide Level 25, Anion Gap 12, Blood Urea Nitrogen 12, Creatinine 0.67, Estimat Glomerular Filtration Rate 92, BUN/Creatinine Ratio 18, Glucose Level 116H, Calcium Level 9.4, Magnesium Level 2.1 Home Meds Active Prednisone 10 Mg Tab.ds.pk 10 Mg PO DAILY Take 6 tabs(60mg)daily,decrease by 1 tab(10MG)daily. Reported Atrovent Hfa (Ipratropium Rogerson) 17 Mcg/Actuation Aers 2 Puff INH BID PRN Levothyroxine Sodium 50 Mcg Tablet 50 Mcg PO DAILY Praluent Pen (Alirocumab) 150 Mg/Ml Pen.injctr 300 Mg INJ MONTHLY NEXT DOSE DUE TODAY 10-20-2022 Hydrochlorothiazide 12.5 Mg Tablet 12.5 Mg PO DAILY Dilt-Xr (Diltiazem HCl) 120 Mg Cap.er.deg 120 Mg PO DAILY Spiriva Respimat 2.5MCG/ACTUATION (Tiotropium Rogerson) 2.5 Mcg/Actuation Mist.inhal 1 Puff INH DAILY Assessment/Pt Instructions See instructions Discharge Planning: >30 minutes discharge planning Discharge Instructions Discharge Diet: No Restrictions Activity as Tolerated: Yes Discharge Physical Examination Vital Signs Vital Signs Date Time Temp Pulse Resp B/P (MAP) Pulse Ox O2 Delivery O2 Flow Rate FiO2 10/21/22 12:00 89 Room Air 10/21/22 09:02 3.00 10/21/22 07:33 36.1 77 20 10/20/22 10:23 28 General Appearance: No Apparent Distress, WD/WN Respiratory: Lungs Clear, No Respiratory Distress Cardiovascular: Regular Rate, Rhythm, No Murmur Gastrointestinal: Normal Bowel Sounds, Soft Extremity: Normal Inspection, No Pedal Edema Skin: Normal Color, Warm/Dry Neurologic/Psychiatric: Alert, Normal Mood/Affect Allergies: Coded Allergies: albuterol (Unverified Allergy, Mild, 10/20/22) pt reports SOB, chest pain, and wheezing enalapril (Unverified Allergy, Mild, 10/20/22) pt reports chest pain, SOB, and palpitations Ljlttqe-FAO-HvD Reductase Inhibitor (Verified Allergy, Unknown, 10/20/22) Discharge Summary Date of Admission Oct 20, 2022 at 08:03 Date of Discharge Oct 21, 2022 at 12:00 Discharge Date: Oct 21, 2022 Discharge Time: 12:00 Admission Diagnosis Acute COPD exacerbation Discharge Diagnosis Acute COPD exacerbation Acute on chronic respiratory failure with hypoxia and hypercapnia HTN Hypothyroidism Tobacco abuse Obesity Adrenal incidentaloma (1) Acute exacerbation of chronic obstructive pulmonary disease (COPD) Status: Acute (2) Acute on chronic respiratory failure with hypoxia and hypercapnia Status: Acute (3) Adrenal incidentaloma Status: Acute (4) HTN (hypertension) Status: Chronic (5) Hypothyroidism Status: Chronic (6) Obesity Status: Chronic (7) Tobacco abuse Status: Chronic SERINA KOCH MD Oct 21, 2022 18:46
== END 2022-10-21 10:40 | disposition home or self-care (01) ==
LOC: EDUNIT# 04:35 → ER 04:36 → UNDOADMOB 08:03 → 4TH 08:03 → UNDODISOB 10-21 10:40
PROVIDERS: ADMIT Internal Medicine; ATTEND Internal Medicine
DX: J44.1 Chronic obstructive pulmonary disease with (acute) exacerbation (principal); J96.21 Acute and chronic respiratory failure with hypoxia; J96.22 Acute and chronic respiratory failure with hypercapnia; I10 Essential (primary) hypertension; E27.8 Other specified disorders of adrenal gland; E03.9 Hypothyroidism, unspecified; E66.9 Obesity, unspecified; F17.210 Nicotine dependence, cigarettes, uncomplicated; Z68.35 Body mass index [BMI] 35.0-35.9, adult; Z79.890 Hormone replacement therapy; Z79.899 Other long term (current) drug therapy; Z79.52 Long term (current) use of systemic steroids; Z20.822 Contact with and (suspected) exposure to COVID-19
CPT/HCPCS: 36600; 71045; 71275; 74177; 80048; 80053; 81000; 82150; 82550; 82553; 82805; 83605; 83690; 83735 ×2; 83874; 83880; 84443; 84484; 85025; 85379; 85610; 85652; 85730; 86141; 87636; 93005; 94640 ×3; 94664; 96372 ×2; 99285; G0378; 36415